=== PATIENT | female | born 1975 | race Caucasian/White ===

== ENCOUNTER 2018-04-30 15:32 | Emergency (ER) | payer OTHER ==
[2018-04-30 15:39] VITALS: BP 146/88
[2018-04-30 16:01] LABS: BILIRUBIN,URINE NEGATIVE (NEGATIVE); CLARITY,URINE HAZY (CLEAR); GLUCOSE, URINE (UA) NEGATIVE (NEGATIVE); KETONES,URINE (UA) NEGATIVE (NEGATIVE); LEUKOCYTE ESTERASE, URINE LARGE (NEGATIVE); NITRITE,URINE NEGATIVE (NEGATIVE); OCCULT BLOOD,URINE LARGE (NEGATIVE); PH,URINE 6.5 PH (5.0-7.5); PROTEIN,URINE NEGATIVE (NEGATIVE); UROBILINOGEN,URINE 0.2 (NORMAL) E.U./dL (NORMAL)
[2018-04-30 16:02] LABS: HCG UR QUAL NEGATIVE
[2018-04-30 16:09] LABS: BASOPHILS # (AUTO) 0.1 10^3/uL (0.0-0.1); BASOPHILS % (AUTO) 0.4 %; EOSINOPHILS # (AUTO) 0.2 10^3/uL (0.0-0.7); EOSINOPHILS % (AUTO) 1.5 %; HGB - HEMOGLOBIN 13.2 g/dL (12.0-16.0); LYMPHOCYTES # (AUTO) 2.5 10^3/uL (1.5-3.5); MEAN CORPUSCULAR HEMOGLOBIN 27.6 pg (27.0-31.0); MEAN CORPUSCULAR HGB CONC 33.8 g/dL (32.0-36.0); MEAN CORPUSCULAR VOLUME 81.8 fL (81.0-99.0); MEAN PLATELET VOLUME 7.9 fL (7.9-10.8); MONOCYTES # (AUTO) 0.7 10^3/uL (0.0-1.0); MONOCYTES % (AUTO) 4.3 %; NEUTROPHILS # (AUTO) 12.4 10^3/uL (1.5-6.6); NEUTROPHILS % (AUTO) 77.8 %; PLT - PLATELET COUNT 267 10^3/uL (130-450); RED BLOOD COUNT 4.76 10^6/uL (4.20-5.40); RED CELL DISTRIBUTION WIDTH 13.7 % (12.0-15.0); WHITE BLOOD COUNT 15.9 x10^3/uL (4.8-10.8)
[2018-04-30 16:10] LABS: BACTERIA,URINE None Seen /HPF (None Seen); RBC,URINE 0-5 /HPF (0-5); SQUAMOUS EPITHELIAL CELL,UR NONE SEEN (<= Few)
[2018-04-30 16:19] LABS: ALBUMIN 3.9 g/dL (3.2-5.5); ALBUMIN/GLOBULIN RATIO 1.3 (1.0-2.2); BILIRUBIN,TOTAL 0.4 mg/dL (0.2-1.0); CALCIUM 8.8 mg/dL (8.5-10.3); CREATININE 0.8 mg/dL (0.4-1.0)
[2018-04-30] MEDS ORDERED: LIDOCAINE 1% 2 ML VIAL SUBQ ONE (16:58)
[2018-04-30] MEDS ORDERED: POTASSIUM BICARB 25 MEQ TABLET PO STA (16:58)
[2018-04-30] MEDS ORDERED: cefTRIAXone 1 GM VIAL IM STA (16:58)
[2018-04-30] MEDS ORDERED: PHENAZOPYRIDINE 100 MG TABLET PO STA (17:11)
--- NOTE | 2018-04-30 17:11 | ED Physician Documentation ---
PD HPI FEMALE - Stated complaint Stated Complaint: ABD PX/FEM - Chief complaint Chief Complaint: UTI - History obtained from History obtained from: Patient - History of Present Illness Timing - onset: Today Timing - duration: Days (1) Timing - details: Abrupt onset Pain level max: 10 Pain level max: 10 Associated symptoms: Abdominal pain (suprapubic), Dysuria, Urinary frequency. No: Fever, Back pain, Vaginal pain, Vaginal bleeding, Vaginal discharge, Hematuria OB-PARTS CONTROL CLERK History: Hysterectomy Similar symptoms before: Diagnosis (recurrent UTI's) Recently seen: Not recently seen Review of Systems Constitutional: reports: Chills Respiratory: denies: Cough GI: denies: Nausea, Vomiting, Diarrhea Skin: denies: Rash Musculoskeletal: denies: Neck pain, Back pain Neurologic: denies: Headache PD PAST MEDICAL HISTORY - Past Medical History Past Medical History: Yes : Other (chronic UTI) - Past Surgical History Past Surgical History: Yes /PARTS CONTROL CLERK: Hysterectomy - Present Medications Home Medications: Ambulatory Orders Medication Instructions Recorded Confirmed Bupropion HCl [Bupropion HCl Sr] 04/30/18 Cephalexin [Keflex] 500 mg PO Q6H #28 capsule 04/30/18 Hydrochlorothiazide 04/30/18 Levothyroxine Sodium [Synthroid] 04/30/18 04/30/18 Lisinopril [Prinivil] 04/30/18 Phenazopyridine HCl [Pyridium] 200 mg PO TID PRN #6 tablet 04/30/18 - Allergies Allergies/Adverse Reactions: Allergies Allergy/AdvReac Type Severity Reaction Status Date / Time No Known Drug Allergies Allergy Verified 04/30/18 15:39 - Living Situation Living Situation: reports: With family Living Arrangement: reports: At home - Social History Does the pt smoke?: No Does the pt drink ETOH?: No Does the pt have substance abuse?: No - Family History Family history: reports: Non contributory PD ED PE NORMAL - Vitals Vital signs reviewed: Yes - General General: Alert and oriented X 3, No acute distress - HEENT HEENT: Moist mucous membranes - Neck Neck: Supple, no meningeal sign - Cardiac Cardiac: RRR, Strong equal pulses - Respiratory Respiratory: No respiratory distress, Clear bilaterally - Abdomen Abdomen: Soft, Non tender, Non distended - Back Back: No CVA TTP - Derm Derm: Warm and dry - Extremities Extremities: No edema - Neuro Neuro: Alert and oriented X 3 - Psych Psych: Normal mood, Normal affect Results - Vitals Vitals: Oxygen O2 Source Room air - Labs Labs: Microbiology 04/30/18 15:46 Urine Culture - Final Urine,Clean Catch No growth Laboratory Tests 04/30/18 04/30/18 04/30/18 15:46 16:01 16:01 WBC 15.9 H RBC 4.76 Hgb 13.2 Hct 38.9 MCV 81.8 MCH 27.6 MCHC 33.8 RDW 13.7 Plt Count 267 MPV 7.9 Neut # (Auto) 12.4 H Lymph # (Auto) 2.5 [place] # (Auto) 0.7 Eos # (Auto) 0.2 Baso # (Auto) 0.1 Absolute Nucleated RBC 0.01 Nucleated RBC % 0.0 Sodium 136 Potassium 2.7 L Chloride 98 L Carbon Dioxide 26 Anion Gap 12.0 BUN 13 Creatinine 0.8 Estimated GFR (MDRD) 79 L Glucose 119 H Calcium 8.8 Total Bilirubin 0.4 AST 22 ALT 16 Alkaline Phosphatase 92 Total Protein 7.0 Albumin 3.9 Globulin 3.1 Albumin/Globulin Ratio 1.3 Lipase 37 Urine Color YELLOW Urine Clarity HAZY Urine pH 6.5 Ur Specific [place] <=1.005 Urine Protein NEGATIVE Urine Glucose (UA) NEGATIVE Urine Ketones NEGATIVE Urine Occult Blood LARGE H Urine Nitrite NEGATIVE Urine Bilirubin NEGATIVE Urine Urobilinogen 0.2 (NORMAL) Ur Leukocyte Esterase LARGE H Urine RBC 0-5 Urine WBC >25 H Ur Squamous Epith Cells NONE SEEN Urine Bacteria None Seen Ur Microscopic Review INDICATED Urine Culture Comments INDICATED Urine HCG, Qual NEGATIVE PD MEDICAL DECISION MAKING - ED course Complexity details: reviewed results, re-evaluated patient, considered differential, d/w patient ED course: Patient is a 42-year-old female who presents to the emergency department with what appears to be UTI. Has had multiple recurrent UTIs recently. Will place on antibiotics. Given a dose of Rocephin. We will have her follow-up with her doctor for further evaluation and care including discussion of potential prophylactic antibiotics versus urology referral to screen for any anatomic abnormalities. Patient counseled regarding signs and symptoms for which I believe and urgent re-evaluation would be necessary. Patient with good understanding of and agreement to plan and is comfortable going home at this time This document was made in part using voice recognition software. While efforts are made to proofread this document, sound alike and grammatical errors may occur. - Sepsis Event Vital Signs: Oxygen O2 Source Room air Departure - Departure Disposition: 01 Home, Self Care Clinical Impression: Urinary tract infection Qualifiers: Urinary tract infection type: acute cystitis Hematuria presence: without hematuria Qualified Code(s): N30.00 - Acute cystitis without hematuria Condition: Good Instructions: ED UTI Cystitis Female Follow-Up: Norbert Kenny MD [Primary Care Provider] - Within 1 week Prescriptions: Cephalexin [Keflex] 500 mg PO Q6H #28 capsule Phenazopyridine HCl [Pyridium] 200 mg PO TID PRN #6 tablet PRN Reason: dysuria Comments: Take all antibiotics until gone. Return if you worsen. You should discuss prophylaxis with your doctor Discharge Date/Time: 04/30/18 17:30
[2018-04-30] MEDS ORDERED: HYDROcod/ACETAM 5/325 MG TABLET PO STA (17:12)
== END 2018-04-30 17:30 | disposition home or self-care (01) ==
LOC: ED 15:32
DX: N30.00 Acute cystitis without hematuria (principal); Z87.440 Personal history of urinary (tract) infections
CPT/HCPCS: 36415; 80053; 81001; 81025; 83690; 85025; 87086; 96372; 99283; A9270; 81003

== ENCOUNTER 2018-11-07 13:43 | Outpatient (CLI) | payer OTHER ==
[~2018-11-07 13:43] MED LIST: BUFFERED LIDOCAINE 10 ML SYRINGE ONE
--- NOTE | 2018-11-07 15:45 | Ultrasound Report ---
Reason: DOMINANT R THYROID NODULE Procedure Date: 11/07/2018 Accession Number: [id number] / [id number] Procedure: US - FNA Bx w/US Gnd les CPT Code: 37897 FULL RESULT: EXAM: Thyroid Fine Needle Aspiration EXAM DATE: 11/07/2018 02:18 PM. CLINICAL HISTORY: Dominant right thyroid nodule. COMPARISON: None. TECHNIQUE: The risks, benefits, and alternatives of the procedure were discussed with the patient. All questions were answered. Written and verbal consent were obtained. A site was marked over the right neck in question under live sonographic evaluation, then subsequently prepped and draped in a sterile manner. Local anesthesia was performed with 1% lidocaine. 4 22-gauge fine-needle aspirates/passes were performed through the dominant right lobe of the thyroid nodule in question, then passed to the sequins winder for preparation. Estimated blood loss was 0 mL. Sonographic images demonstrate needle placement within the dominant right thyroid nodule in question. Fluoroscopy Time: 0 minutes Number of Images: 18 FINDINGS IMPRESSION: Right thyroid nodule FNA. RADIA
[2018-11-07] MEDS ORDERED: BUFFERED LIDOCAINE 10 ML SYRINGE IU ONE (18:11)
== END 2018-11-07 13:44 | disposition home or self-care (01) ==
LOC: DI 13:43
PROVIDERS: ATTEND Surgery
DX: E04.1 Nontoxic single thyroid nodule (principal)
CPT/HCPCS: 10005

== ENCOUNTER 2019-01-07 13:41 | Outpatient (CLI) | payer OTHER ==
[2019-01-07] MEDS ORDERED: BUFFERED LIDOCAINE 10 ML SYRINGE IU ONE (15:16)
--- NOTE | 2019-01-07 15:43 | Ultrasound Report ---
Reason: MORE TISSUE,THYROID NODULE,TISSUE INADEQUTE FOR Procedure Date: 01/07/2019 Accession Number: [id number] / [id number] Procedure: US - FNA Bx w/US Gnd les CPT Code: 57924 FULL RESULT: EXAM: Thyroid Fine Needle Aspiration EXAM DATE: 01/07/2019 01:43 PM. CLINICAL HISTORY: Thyroid nodule. COMPARISON: None. TECHNIQUE: The risks, benefits, and alternatives of the procedure were discussed with the patient. All questions were answered. Written and verbal consent were obtained. A site was marked over the right thyroid lobe in question under live sonographic evaluation, then subsequently prepped and draped in a sterile manner. Local anesthesia was performed with 1% lidocaine. A total of 4 22-gauge fine-needle aspirates/passes were performed through the right thyroid nodule in question, then passed to the studio producer for preparation. Estimated blood loss was 0 mL. Sonographic images demonstrate needle placement within the right thyroid nodule in question. Fluoroscopy Time: None. Number of Images: 13 ultrasound images. FINDINGS IMPRESSION: Thyroid FNA. RADIA
== END 2019-01-07 13:42 | disposition home or self-care (01) ==
LOC: DI 13:41
PROVIDERS: ATTEND Surgery
DX: E04.1 Nontoxic single thyroid nodule (principal)
CPT/HCPCS: 10005

== ENCOUNTER 2019-01-07 16:40 | Emergency (ER) | payer OTHER ==
[2019-01-07 16:46] VITALS: BP 102/67
== END 2019-01-07 17:09 | disposition left against medical advice (07) ==
LOC: ED 16:40
DX: Z53.21 Procedure and treatment not carried out due to patient leaving prior to being seen by health care provider (principal)
CPT/HCPCS: 99281

== ENCOUNTER 2019-04-29 10:06 | Outpatient (CLI) | payer OTHER | END 2019-04-29 10:07 | disposition critical access hospital (66) | LOC: EMS 10:06 | PROVIDERS: ATTEND Surgery | DX: R53.81 Other malaise (principal); R50.9 Fever, unspecified; R05 Cough; R19.7 Diarrhea, unspecified | CPT/HCPCS: A0425; A0429 ==

== ENCOUNTER 2019-04-29 10:30 | Emergency (ER) | payer OTHER ==
[2019-04-29] MEDS ORDERED: IPRATROPIUM/ALBUTEROL 3 ML NEB INH STA (11:38)
[2019-04-29] MEDS ORDERED: SODIUM CHLORIDE 0.9% 1,000 ML IV ONE ×2 (11:38→13:27)
[2019-04-29 12:12] LABS: BILIRUBIN,URINE NEGATIVE (NEGATIVE); GLUCOSE, URINE (UA) NEGATIVE (NEGATIVE); KETONES,URINE (UA) NEGATIVE (NEGATIVE); LEUKOCYTE ESTERASE, URINE NEGATIVE (NEGATIVE); NITRITE,URINE NEGATIVE (NEGATIVE); OCCULT BLOOD,URINE TRACE-LYSE (NEGATIVE); PROTEIN,URINE NEGATIVE (NEGATIVE); UROBILINOGEN,URINE 0.2 (NORMAL) E.U./dL (NORMAL)
[2019-04-29 12:15] LABS: CLARITY,URINE CLEAR (CLEAR); HCG UR QUAL NEGATIVE
[2019-04-29 12:18] LABS: BASOPHILS % (AUTO) 0.2 %; EOSINOPHILS % (AUTO) 0.8 %; HGB - HEMOGLOBIN 11.7 g/dL (12.0-16.0); LYMPHOCYTES # (AUTO) 1.3 10^3/uL (1.5-3.5); MEAN CORPUSCULAR HGB CONC 33.1 g/dL (32.0-36.0); MEAN CORPUSCULAR VOLUME 81.5 fL (81.0-99.0); MEAN PLATELET VOLUME 9.6 fL (7.9-10.8); MONOCYTES # (AUTO) 0.4 10^3/uL (0.0-1.0); MONOCYTES % (AUTO) 7.5 %; NEUTROPHILS # (AUTO) 3.1 10^3/uL (1.5-6.6); NEUTROPHILS % (AUTO) 63.3 %; PLT - PLATELET COUNT 181 10^3/uL (130-450); RED BLOOD COUNT 4.33 10^6/uL (4.20-5.40); RED CELL DISTRIBUTION WIDTH 13.1 % (12.0-15.0); WHITE BLOOD COUNT 4.9 x10^3/uL (4.8-10.8)
[2019-04-29 12:31] LABS: ALBUMIN 3.5 g/dL (3.2-5.5); ALBUMIN/GLOBULIN RATIO 1.1 (1.0-2.2); BILIRUBIN,TOTAL 0.4 mg/dL (0.2-1.0); CALCIUM 8.4 mg/dL (8.5-10.3); CREATININE 1.1 mg/dL (0.4-1.0); TOTAL PROTEIN 6.6 g/dL (6.7-8.2)
--- NOTE | 2019-04-29 12:43 | XRAY Report ---
Reason: right base rhonchi Procedure Date: 04/29/2019 Accession Number: [id number] / [id number] Procedure: XR - Chest 1 View X-Ray CPT Code: 71135 FULL RESULT: EXAM: CHEST RADIOGRAPHY EXAM DATE: 04/29/2019 12:27 PM. CLINICAL HISTORY: Right base rhonchi. Shortness of breath. COMPARISON: None. TECHNIQUE: 1 view. FINDINGS: Lungs/Pleura: There is patchy opacity at the right lung base. No pleural effusion. No pneumothorax. Mediastinum: Within exam limitations, the cardiomediastinal contour is normal. Other: No acute osseous abnormality. IMPRESSION: Patchy opacity at the right lung base, suspicious for pneumonia or aspiration. RADIA
[2019-04-29] MEDS ORDERED: cefTRIAXone 1 GM in SODIUM CHLORIDE 0.9% MINIBAG 100 ML IV STA (12:49)
[2019-04-29] MEDS ORDERED: DEXAMETHASONE 10 MG/ML VIAL IVP STA (12:49)
--- NOTE | 2019-04-29 12:50 | ED Physician Documentation ---
PD HPI URI - Stated complaint Stated Complaint: WEAKNESS - Chief complaint Chief Complaint: General - History obtained from History obtained from: Patient - History of Present Illness Timing - onset: How many weeks ago (3) Timing duration: Weeks (3) Timing details: Gradual onset, Still present Associated symptoms: Fever, Chills, Nasal congestion, Dry cough, Dyspnea Improves by: Rest, Medication Worsened by: Activity Similar symptoms before: Has not had sx before Recently seen: Not recently seen - Additional information Additional information: 43-year-old female became ill about 8 days ago with cough and congestion and she felt this was just the flu this is progressed she is now dyspneic and she has had about 3 days of diarrhea and nausea without vomiting. Review of Systems Constitutional: reports: Fever, Chills, Myalgias, Fatigue Eyes: denies: Decreased vision Ears: denies: Ear pain Nose: reports: Rhinorrhea / runny nose, Congestion Throat: reports: Sore throat Cardiac: reports: Chest pain / pressure (with coughing). denies: Palpitations, Pedal edema, Calf pain Respiratory: reports: Dyspnea, Cough GI: reports: Nausea, Diarrhea. denies: Abdominal Pain, Vomiting : denies: Dysuria, Frequency PD PAST MEDICAL HISTORY - Past Medical History Past Medical History: No : Other - Past Surgical History Past Surgical History: Yes /SODDER: Hysterectomy - Present Medications Home Medications: Ambulatory Orders Medication Instructions Recorded Confirmed Bupropion HCl [Bupropion HCl Sr] 300 mg PO DAILY 04/30/18 04/29/19 Hydrochlorothiazide 12.5 mg PO DAILY 04/30/18 04/29/19 Levothyroxine Sodium [Synthroid] 50 mcg PO DAILY 04/30/18 04/29/19 Albuterol Sulfate [Proair 2 puffs IH Q4HR PRN 04/29/19 04/29/19 Respiclick] Azithromycin [Zithromax] 250 mg PO DAILY #6 tablet 04/29/19 Fluticasone Furoate [Arnuity 50 mcg IH BID 04/29/19 04/29/19 Ellipta] Loratadine [Claritin] 10 mg PO DAILY PRN 04/29/19 04/29/19 Losartan [Cozaar] 50 mg PO DAILY 04/29/19 04/29/19 Metoprolol Succinate 50 mg PO DAILY 04/29/19 04/29/19 Potassium Chloride 20 meq PO BID #10 tablet.er 04/29/19 Rizatriptan Benzoate [Rizatriptan] 5 mg PO PRN PRN 04/29/19 04/29/19 traZODone [Desyrel] 100 mg PO BID 04/29/19 04/29/19 - Allergies Allergies/Adverse Reactions: Allergies Allergy/AdvReac Type Severity Reaction Status Date / Time No Known Drug Allergies Allergy Verified 04/29/19 10:51 - Social History Does the pt smoke?: No Smoking Status: Never smoker Does the pt drink ETOH?: No Does the pt have substance abuse?: No PD ED PE NORMAL - Vitals Vital signs reviewed: Yes (hypertensive ) - General General: Alert and oriented X 3, Well developed/nourished - HEENT HEENT: Atraumatic, PERRL, EOMI, Other (There is inflamation to the left TM with rounding of the umbo ) - Neck Neck: Supple, no meningeal sign, No bony TTP - Cardiac Cardiac: RRR, No murmur - Respiratory Respiratory: No respiratory distress, Other (rhonchi in the right base) - Abdomen Abdomen: Soft, Non tender - Back Back: No CVA TTP, No spinal TTP - Derm Derm: Normal color, Warm and dry, No rash - Extremities Extremities: No deformity, No edema - Neuro Neuro: Alert and oriented X 3, hard candy batch mixer 2-12 intact, No motor deficit, No sensory deficit, Normal speech Eye Opening: Spontaneous Motor: Obeys Commands Verbal: Oriented GCS Score: 15 - Psych Psych: Other (mood is withdrawn and the affect is flat ) Results - Vitals Vitals: Vital Signs - 24 hr 04/29/19 04/29/19 04/29/19 10:44 12:30 12:38 Temperature 36.6 C Heart Rate 89 83 73 Respiratory 16 28 H 12 Rate Blood Pressure 152/94 H 151/103 H O2 Saturation 96 98 04/29/19 14:00 Temperature Heart Rate 86 Respiratory 17 Rate Blood Pressure 160/71 H O2 Saturation 94 Oxygen O2 Source Room air - EKG (time done) 1152 Rate: Rate (enter#) (72) Rhythm: NSR [place]: LAD Ischemia: Non specific changes (diffuse T wave flattening/inversion) Compare to prior EKG: Old EKG unavailable Computer interpretation: Disagree with computer (The patient is in sinus) - Labs Labs: Laboratory Tests 04/29/19 04/29/19 04/29/19 11:44 11:44 11:54 WBC 4.9 RBC 4.33 Hgb 11.7 L Hct 35.3 L MCV 81.5 MCH 27.0 MCHC 33.1 RDW 13.1 Plt Count 181 MPV 9.6 Neut # (Auto) 3.1 Lymph # (Auto) 1.3 L [place] # (Auto) 0.4 Eos # (Auto) 0.0 Baso # (Auto) 0.0 Absolute Nucleated RBC 0.00 Nucleated RBC % 0.0 Sodium Potassium Chloride Carbon Dioxide Anion Gap BUN Creatinine Estimated GFR (MDRD) Glucose Lactic Acid Calcium Total Bilirubin AST ALT Alkaline Phosphatase Total Protein Albumin Globulin Albumin/Globulin Ratio Lipase Urine Color YELLOW Urine Clarity CLEAR Urine pH 6.0 Ur Specific [place] <=1.005 <=1.005 Urine Protein NEGATIVE Urine Glucose (UA) NEGATIVE Urine Ketones NEGATIVE Urine Occult Blood TRACE-LYSE Urine Nitrite NEGATIVE Urine Bilirubin NEGATIVE Urine Urobilinogen 0.2 (NORMAL) Ur Leukocyte Esterase NEGATIVE Ur Microscopic Review NOT INDICATED Urine Culture Comments NOT INDICATED Urine HCG, Qual NEGATIVE 04/29/19 04/29/19 11:54 11:54 WBC RBC Hgb Hct MCV MCH MCHC RDW Plt Count MPV Neut # (Auto) Lymph # (Auto) [place] # (Auto) Eos # (Auto) Baso # (Auto) Absolute Nucleated RBC Nucleated RBC % Sodium 139 Potassium 2.7 L Chloride 104 Carbon Dioxide 22 Anion Gap 13.0 BUN 10 Creatinine 1.1 H Estimated GFR (MDRD) 54 L Glucose 94 Lactic Acid 1.2 Calcium 8.4 L Total Bilirubin 0.4 AST 22 ALT 23 Alkaline Phosphatase 76 Total Protein 6.6 L Albumin 3.5 Globulin 3.1 Albumin/Globulin Ratio 1.1 Lipase 18 L Urine Color Urine Clarity Urine pH Ur Specific [place] Urine Protein Urine Glucose (UA) Urine Ketones Urine Occult Blood Urine Nitrite Urine Bilirubin Urine Urobilinogen Ur Leukocyte Esterase Ur Microscopic Review Urine Culture Comments Urine HCG, Qual - Rads (name of study) chest Radiology: Prelim report reviewed (Impression: Patchy opacity of the right lung base, suspicious for pneumonia or aspiration.), EMP read indepedently, See rad report Procedures - IVC sono (time) 1130 Bedside IVC sono: IVC measures (cm) (0.94), IVC collapsed c insp (cm) (complete), Dehydration (est 2 liter deficit) PD MEDICAL DECISION MAKING - ED course Complexity details: reviewed results, re-evaluated patient, considered differential, d/w patient ED course: 43-year-old female with cough congestion and fever has pneumonia on exam and this is confirmed with chest x-ray. She has normal oxygen saturation and she is found to be significantly dehydrated on interrogation of the inferior vena cava. She is also hypokalemic. She is given intravenous saline dexamethasone potassium and Rocephin. Departure - Departure Disposition: Home, Self Care Clinical Impression: Hypokalemia Pneumonia Qualifiers: Pneumonia type: due to unspecified organism Laterality: right Lung location: lower lobe of lung Qualified Code(s): J18.1 - Lobar pneumonia, unspecified organism Condition: Stable Instructions: ED Pneumonia Adult, ED Potassium Deficiency Follow-Up: Sarina eKnny MD [Primary Care Provider] - Prescriptions: Azithromycin [Zithromax] 250 mg PO DAILY #6 tablet Potassium Chloride 20 meq PO BID #10 tablet.er
[2019-04-29] MEDS ORDERED: POTASSIUM CHLOR 10 MEQ/100 ML 10 MEQ/100 ML BAG IV ONE (13:26)
[2019-04-29] MEDS ORDERED: POTASSIUM CHLORIDE 20 MEQ TABLET PO STA (13:27)
[2019-04-29 16:44] VITALS: BP 138/84
== END 2019-04-29 16:50 | disposition home or self-care (01) ==
LOC: EDUNIT# → ED 10:30
DX: J18.1 Lobar pneumonia, unspecified organism (principal); E86.0 Dehydration; E87.6 Hypokalemia
CPT/HCPCS: 36415; 71045; 80053; 81003; 81025; 83605; 83690; 85025; 87040; 93005; 94640; 96361; 96365; 96367; 99284; A9270; 81001; 87086